=== PATIENT | female | born 1990 | race Caucasian/White ===

== ENCOUNTER 2019-11-25 10:50 | Emergency (ER) | payer OTHER, SELFPAY ==
[2019-11-25 10:58] VITALS: BP 136/88; PULSE 78; RESP 16; TEMP 36.6; O2SAT 100; BMI 32.1
--- NOTE | 2019-11-25 11:31 | ED_ITS ---
Entered by Genie Enrique, acting as scribe for Nicolasa Hanson May Nov 25, 2019 10:50 HPI - Neuro Symptoms/Deficit General: Chief Complaint: Neuro Symptoms/Deficit Stated Complaint: face numbness and tingling Time Seen by Provider: 11/25/19 11:29 Source: patient Mode of arrival: ambulatory Limitations: no limitations History of Present Illness: HPI Narrative: 28 yo Female presents to ED with complaint of numbness to her face. Pt states that it started on this right side of her face and has spread up and around her forehead and down the left side of her face and down into her left arm. Pt states that she had a headache yesterday and last night but it has resolved this morning. Onset (ago): hour(s) Time: 10:30 Location: left face and right face History of same: No Quality: numb Relieving factors: none Exacerbating factors: none Context: gradual onset On Anticoagulants: No Associated symptoms: Reports headache(s) and tingling; Deny chest pain, diaphoresis, fevers/chills, malaise, nausea, vomiting or weakness Review of Systems General: Reports: other (negative unless marked) Const: Denies: fever, chills, body aches, fatigue, malaise or diaphoresis Eyes: Denies: change in vision or blurry vision ENMT: Denies: throat pain, painful swallowing, hoarseness, ear pain, ear discharge, Change in hearing or nasal discharge Card: Denies: chest pain Resp: Denies: shortness of breath, productive cough, non-productive cough, wheezing, coughing up blood or chest congestion GI: Denies: abdominal pain, nausea, vomiting, vomiting blood, coffee grounds in vomit, diarrhea, constipation, cramping, blood in stool or black tarry stool : Denies: flank pain, painful urination, urinary frequency, urinary urgency, decreased urine ouput, urinary incontinence or blood in urine Musc: Denies: neck pain, back pain, extremity pain, extremity swelling, joint pain, joint swelling, joint warmth or joint stiffness Skin/Breast: Denies: rash, skin tenderness or yellow skin Neuro: Reports: headache, numbness in extremities and changes in sensation Endo: Denies: excessive thirst, tired all the time, cold intolerance, excessive sweating, flushing or hot flashes Jef/Lymph: Denies: easy bruising, easy bleeding, petechiae or enlarged lymph nodes All/Imm: Denies: hives, throat swelling, tongue swelling, facial swelling or acute wheezing PFSH ED PFSH: Statuses (acute, chronic, etc) shown below reflect problem list status as previously entered and may not be historically accurate Medical History Depression (Acute) Psoriasis (Acute) Sciatica (Acute) Family History Other Cancer Diabetes Hypertension Multiple sclerosis Stroke Social History Smoking and tobacco status: current every day smoker Female Reproductive History: Date of last menstrual period: 11/17/19 NIH stroke score NIHSS: Level Of Consciousness - 1a: 0 Level Of Consciousness Questions - 1b: Both Correct Level Of Consciousness Commands - 1c: Both Correct Best Gaze - 2: Normal Visual Mirza - 3: No Visual Loss Facial Palsy - 4: Normal Motor Arm Right - 5: No Drift Motor Arm Left - 5: Drift Motor Leg Right - 6: No Drift Motor Leg Left - 6: Drift Limb Ataxia - 7: Absent Sensory - 8: Mild To Moderate Loss Best Language - 9: No Aphasia Dysarthia - 10: Normal Extinction And Inattention - 11: 0 Score: Total Score: 3 Physical Exam Const: COMMON NORMALS: no apparent distress, oriented x3, no limitations, healthy appearing and well nourished EXAM LIMITATIONS: no altered mental status GENERAL APPEARANCE: cooperative, well kempt and well developed ORIENTATION/CONSCIOUSNESS: Yes awake HENMT: COMMON NORMALS: normocephalic, head/scalp atraumatic, hearing grossly normal bilaterally, external ears normal, EAC's normal, external nose normal and moist oral mucous membranes HEAD & SCALP: normal to inspection, normocephalic and atraumatic FACE & SINUS: normal facial exam and face symmetric NOSE: external nose normal and nares normal EXTERNAL EAR: Yes external ears normal EXTERNAL AUDITORY CANAL: EAC's normal MOUTH: oral and palatal mucosa normal and tongue normal Eye: COMMON NORMALS: PERRL, EOMs intact bilaterally, conjunctivae normal and no scleral icterus GENERAL EYE: normal appearance of both eyes and normal light reflex CONJUNCTIVA: Yes conjunctivae normal SCLERA: sclerae normal CORNEA: Yes corneas normal PUPIL: Yes PERRL DIRECT OPHTHALMOSCOPY: Yes normal light reflex Neck/C-Spine: COMMON NORMALS: full ROM, no lymphadenopathy, supple, no meningeal signs and no JVD GENERAL: Yes normal visual inspection and Yes trachea midline CERVICAL SPINE: Yes cervical ROM normal Chest: COMMONS NORMALS: inspection of chest normal and palpation of chest n ormal Resp: COMMON NORMALS: normal respiratory effort, no retractions, no use of accessory muscles and clear to auscultation bilaterally EFFORT & INSPECTION: Yes able to speak in complete sentences AUSCULTATION: clear to auscultation bilaterally Cardio: COMMON NORMALS: no JVD, regular rate, regular rhythm, S1 normal heart sound, S2 normal heart sound, no gallops, no clicks, no murmurs and no rub JUGULAR VENOUS DISTENTION: no JVD RATE: regular rate RHYTHM: regular rhythm HEART SOUNDS: S1 normal and S2 normal GI: COMMON NORMALS: soft to palpation, non-tender, no hepatosplenomegaly and no masses INSPECTION: Yes normal to inspection PALPATION: Yes soft and Yes no hepatosplenomegaly : COMMON NORMALS: Yes no CVA tenderness BLADDER/KIDNEY EXAM: Yes no CVA tenderness Back/Pelvis: COMMON NORMALS: no CVA tenderness, thoracic and lumbar spine normal to inspection, no thoracic nor lumbar tenderness and thoraco-lumbar ROM normal Extremity: COMMON NORMALS: normal to inspection, full ROM, normal capillary refill, no joint enlargement, no clubbing, cyanosis or edema and no calf tenderness Neuro: COMMON NORMALS: oriented x3, CN's II-XII intact bilaterally, moves all extremities, no focal motor deficits and no sensory deficits noted MENINGEAL SIGNS: Yes no meningeal signs Psych: COMMON NORMALS: mental status grossly normal, thought process normal, cooperative, affect normal, speech normal and activity/motor behavior normal APPEARANCE: Yes well kempt SPEECH: Yes normal speech THOUGHT PROCESS: normal thought process Skin: COMMON NORMALS: no rashes or lesions noted, skin turgor normal, no jaundice, no petechiae and no mottling GENERAL SKIN EXAM: no rashes or lesions noted and turgor normal Course Vital Signs: Vital signs: Vital Signs Temperature 97.9 F 11/25/19 10:58 Pulse Rate 80 11/25/19 14:08 Respiratory Rate 16 11/25/19 10:58 Blood Pressure 95/64 11/25/19 14:08 Pulse Oximetry 99 11/25/19 14:08 MDM - Neuro Symptoms/Deficit MDM Narrative: Medical decision making narrative: The patient was seen and evaluated by Dr. Rios, please see her note for her history, physical exam and medical decision making notes. She agreed the patient was not a TPA candidate and this was much more likely a complicated migraine. Treating her with migraine medications has caused the neurologic symptoms to resolve that she now has a headache but that is improving as well. Further history reveals the patient is been having frequent headaches. I reviewed the case with Dr. Kelley and he is agreeable to see the patient in his office for recheck this week. I reviewed this plan with the patient and she is in agreement. She has no other questions or concerns. Differential Diagnosis: Neuro Differential Diagnosis: Likely delirium, subarachnoid hemorrhage, peripheral neuropathy, cerebrovascular accident, multiple sclerosis and transient cerebral ischemia Lab Data: Labs: Lab Results 11/25/19 11/25/19 11/25/19 Range/Units 11:48 11:48 11:48 WBC 7.6 (4.0-10.0) 10^3/ uL RBC 5.49 H (4.1-5.3) 10^6/u L Hgb 15.7 H (11.5-15.3) g/dL Hct 48.9 H (37.0-47.0) % MCV 89.1 (81-99) fL MCH 28.6 (28.0-34.0) pg MCHC 32.1 (30.0-36.0) g/dL RDW 11.8 L (12.1-15.1) % Plt Count 203 (130-400) 10^3/c mm MPV 11.5 H (7.4-10.4) fL Neut % (Auto) 72.8 % Lymph % (Auto) 20.0 % [place] % (Auto) 5.0 % Eos % (Auto) 1.3 % Baso % (Auto) 0.5 % Neut # (Auto) 5.5 (1.8-7.7) 10^3/u L Lymph # (Auto) 1.5 (0.8-4.8) 10^3/u L [place] # (Auto) 0.4 (0.2-0.9) 10^3/u L Eos # (Auto) 0.1 (0.0-0.8) 10^3/u L Baso # (Auto) 0.0 (0.0-0.1) 10^3/u L Nucleated RBC % (a uto) 0 % Nucleated RBCs # 0.0 /100WBC ESR (0-15) mm/hr PT 13.40 H (10.5-13.3) SECO NDS INR 0.99 (0.8-1.2) APTT 36.9 H (23.9-36.7) SECO NDS Sodium 136 (136-145) mmol/L Potassium 4.2 (3.5-5.1) mmol/L Chloride 99 (98-107) mmol/L Carbon Dioxide 26 (22-29) mmol/L Anion Gap 15.2 (5-19) BUN 8 (6-20) mg/dL Creatinine 0.8 (0.5-0.9) mg/dL GFR Calculation 84.8 L (90-130) mL/min Glucose 93 (74-109) mg/dL POC Glucose (70-110) mg/dL Calcium 10.6 H (8.6-10.0) mg/Dl Total Bilirubin 0.9 (0.15-1.2) mg/dL AST 35 H (0-32) U/L ALT 68 H (0-33) U/L Alkaline Phosphata se 144 H (35-105) IU/L C-Reactive Protein (0.0-4.9) mg/L Total Protein 8.8 H (6.6-8.7) g/dL Albumin 5.1 (3.5-5.2) g/dL Globulin 3.7 (1.3-4.6) g/dL Ethyl Alcohol < 10 (0-10) mg/dL 11/25/19 11/25/19 11/25/19 Range/Units 11:48 11:48 12:26 WBC (4.0-10.0) 10^3/ uL RBC (4.1-5.3) 10^6/u L Hgb (11.5-15.3) g/dL Hct (37.0-47.0) % MCV (81-99) fL MCH (28.0-34.0) pg MCHC (30.0-36.0) g/dL RDW (12.1-15.1) % Plt Count (130-400) 10^3/c mm MPV (7.4-10.4) fL Neut % (Auto) % Lymph % (Auto) % [place] % (Auto) % Eos % (Auto) % Baso % (Auto) % Neut # (Auto) (1.8-7.7) 10^3/u L Lymph # (Auto) (0.8-4.8) 10^3/u L [place] # (Auto) (0.2-0.9) 10^3/u L Eos # (Auto) (0.0-0.8) 10^3/u L Baso # (Auto) (0.0-0.1) 10^3/u L Nucleated RBC % (a uto) % Nucleated RBCs # /100WBC ESR 7 (0-15) mm/hr PT (10.5-13.3) SECO NDS INR (0.8-1.2) APTT (23.9-36.7) SECO NDS Sodium (136-145) mmol/L Potassium (3.5-5.1) mmol/L Chloride (98-107) mmol/L Carbon Dioxide (22-29) mmol/L Anion Gap (5-19) BUN (6-20) mg/dL Creatinine (0.5-0.9) mg/dL GFR Calculation (90-130) mL/min Glucose (74-109) mg/dL POC Glucose 93 (70-110) mg/dL Calcium (8.6-10.0) mg/Dl Total Bilirubin (0.15-1.2) mg/dL AST (0-32) U/L ALT (0-33) U/L Alkaline Phosphata se (35-105) IU/L C-Reactive Protein 0.8 (0.0-4.9) mg/L Total Protein (6.6-8.7) g/dL Albumin (3.5-5.2) g/dL Globulin (1.3-4.6) g/dL Ethyl Alcohol (0-10) mg/dL Imaging Data^: CT Head: Radiologist's impression: [address] [address] [address] Scan Report Signed Patient: Yina Soriano #: [id number] : 1990Acct#:[id number] Age/Sex: 28 / FADM Date: 11/25/19 Loc: ERRoom/Bed: Attending Dr: Ordering Provider/Ordering MD: Nicolasa Hanson DO Date of Service: 11/25/19 Procedure(s): CT head wo con* [id number] Accession Number(s): [id number] Report Number: [id number] WS: [id number] CT HEAD NONCONTRAST HISTORY: Symptoms of Acute Stroke TECHNIQUE: Contiguous axial imaging performed through the brain in 2.5 mm imaging. Bone and soft tissue windows. Sagittal and coronal reformats reviewed. All CT scans at [facility] use at least one of these dose optimization techniques: automated exposure control; mA and/or kV adjustment per patient size (includes targeted exams where dose is matched to clinical indication); or iterative reconstruction. DLP: 842.57 mGy.cm COMPARISON: None available. No acute intracranial hemorrhage, midline shift or mass effect. No atrophy or prior infarcts or herniation. No sulcal effacement. Ventricles: Normal size with no hydrocephalus. Paranasal sinuses: As visualized are clear. Mastoid air cells: Well pneumatized. Calvarium and scalp: Skull is intact with no soft tissue edema or swelling. Notified Nicolasa Hanson at 11/25/2019 11:[address]/CT head wo con* [id number] IMPRESSION: Negative head CT. Dictated By:Susana Foster DO Signed By:Susana Foster DOSigned Date/Time:11/25/19 1200 DD/ 1155 CXR: Radiologist's impression: [facility] [address] [place] [address] XRay Report Signed Patient: Yina Soriano #: [id number] : 1990Acct#:[id number] Age/Sex: 28 / FADM Date: 11/25/19 Loc: ERRoom/Bed: Attending Dr: Ordering Provider/Ordering MD: Nicolasa Hanson DO Date of Service: 11/25/19 Procedure(s): XR chest 1V portable 10059 Accession Number(s): [id number] Report Number: [id number] PROCEDURE INFORMATION: Exam: XR Chest, 1 View Exam date and time: 11/25/2019 12:37 PM Age: 28 years old Clinical indication: Other: Altered mental status; Additional info: AMS TECHNIQUE: Imaging protocol: XR of the chest Views: 1 view. COMPARISON: No relevant prior studies available. FINDINGS: Lungs: Unremarkable. No consolidation. Pleural space: Unremarkable. No pleural effusion. No pneumothorax. Heart/Mediastinum: Unremarkable. No cardiomegaly. Bones/joints: Unremarkable. XR/XR chest 1V portable [id number] IMPRESSION: No acute findings. Dictated By:Kal Johnston Signed By:Rambo Johnston Date/Time:11/25/191315 DD/ 14 CTA Head/Neck: Radiologist's impression: [place] [address] CT Scan Report Signed Patient: Yina Soriano #: [id number] : 1990Acct#:[id number] Age/Sex: 28 FADM Date: 11/25/19 Loc: ERRoom/Bed: Attending Dr: Ordering Provider/Ordering MD: Nicolasa Hanson DO Date of Service: 11/25/19 Procedure(s): CT angio headneck* [id number] Accession Number(s): [id number] Report Number: [id number] WS: [id number] CT ANGIOGRAM CEREBRAL AND CAROTID ARTERIES HISTORY: CVA SYMPTOMS TECHNIQUE: CT angiogram is performed of the carotid and cerebral arteries. During arterial injection imaging is obtained from the skull vertex to the aortic arch in 1.25 mm imaging. Coronal and sagittal reformats are submitted. Additional multi planar reformats of the carotid and cerebral arteries are submitted, MIP imaging also reviewed. NASCET criteria utilized. All CT scans at [facility] use at least one of these dose optimization techniques: automated exposure control; mA and/or kV adjustment per patient size (includes targeted exams where dose is matched to clinical indication); or iterative reconstruction. CONTRAST: Omnipaque 350; 95 mL IV. DLP: 1464.94 mGy.cm COMPARISON: No similar studies. Carotid Angiogram: Right carotid: Common carotid artery: Arises normally from the innominate artery. No significant plaque or stenosis. Internal carotid artery: No plaque or stenosis.0 External carotid artery: Patent. Left carotid: Common carotid artery: Arises normally from the aorta. No significant plaque or stenosis. Internal carotid artery: No plaque or stenosis. External carotid artery: Patent. Right vertebral artery: Unremarkable. Left vertebral artery: Unremarkable. Arises normally from the subclavian artery. Subclavian arteries: No stenosis or significant abnormality. Upper thorax: Normal. Thyroid gland: Normal. Osseous structures: Unremarkable. CEREBRAL ANGIOGRAM: Intracranial vertebral arteries: Normal with no significant atherosclerosis. Basilar artery: No significant stenosis or occlusion. No aneurysm. Intracranial Internal carotid arteries: Demonstrates no significant stenosis or plaque. Middle cerebral arteries: Normal. Anterior cerebral arteries and ACOM: Normal. Posterior cerebral arteries and PCOM's: Normal. Dural venous sinuses are normally enhancing. Mastoid air cells: Normal. Paranasal sinuses: Mild mucoperiosteal thickening in the maxillary sinuses. Calvarium: Normal. CT/CT angio headneck* [id number] IMPRESSION: 1. Normal carotid arteries. 2. Unremarkable [place]. Dictated By:Susana Foster DO Signed By:Susana Foster DOSigned Date/Time:11/25/191227 DD/ 1224 Discharge Plan Discharge Patient Disposition: Home, Self-Care Clinical Impression: Complicated migraine Condition: Stable Prescriptions: New Reglan 10 mg tablet 10 mg PO Q6H 7 Days Qty: 28 RF: 0 Adult Low Dose Aspirin 81 mg tablet,delayed release (DR/EC) 81 mg PO DAILY Qty: 20 RF: 0 No Action No Known Home Medications RF: 0 Discharge Orders: Discharge Order (Routine); Ordered 11/25/19 Ordered By: Nicolasa Hanson Referrals: Jake Kelley MD [Family Provider] - 1-3 days Discharge Diet: Usual diet Discharge Activity: Increase activity as tolerated Patient Instructions: Headache - Migraine (Adult) Activity Restrictions/Additional Instructions: Please return to the ER immediately for any of the signs or symptoms listed on your discharge instruction sheets, worsening/changing of your symptoms, you are not getting better as quickly as expected, or for ANY other cause or concerns. Be certain to call Dr. Kelley's office today as he is agreed to see you in the office this week for recheck. Coding Level of Care Code ED Distillery Worker for Chg Fwd Exam Problem Focused The documentation recorded by the Iva cyr Carmen, accurately reflects the service I personally performed and the decisions made by me, Nicolasa Hanson Nov 25, 2019 10:50
--- NOTE | 2019-11-25 11:40 | CT_ITS ---
WS: [id number] CT HEAD NONCONTRAST HISTORY: Symptoms of Acute Stroke TECHNIQUE: Contiguous axial imaging performed through the brain in 2.5 mm imaging. Bone and soft tiss ue windows. Sagittal and coronal reformats reviewed. All CT scans at [facility] use at ast one of these dose optimization techniques: automated exposure control; mA and/or kV adjustment pe r patient size (includes targeted exams where dose is matched to clinical indication); or iterative r econstruction. DLP: 842.57 mGy.cm COMPARISON: None available. No acute intracranial hemorrhage, midline shift or mass effect. No atrophy or prior infarcts or herniation. No sulcal effacement. Ventricles: Normal size with no hydrocephalus. Paranasal sinuses: As visualized are clear. Mastoid air cells: Well pneumatized. Calvarium and scalp: Skull is intact with no soft tissue edema or swelling. Notified Nicolasa Hanson at 11/25/2019 11:[address]/CT head wo con* [id number] IMPRESSION: Negative head CT.
--- NOTE | 2019-11-25 11:40 | ECG_ITS ---
Measurements Intervals [place] Rate: 72 P: 49 SD: 199 QRS: 42 QRSD: 96 T: 52 QT: 383 QTc: 422 SINUS RHYTHM LOW QRS VOLTAGE IN PRECORDIAL LEADS [QRS DEFLECTION < 1.0 mV IN CHEST LEADS] No previous ECG available for comparison Electronically Signed On 11-25-2019 20:12:29 CUT OFF SAW GRADER by Willam Bethea M.D. [email or web address]
--- NOTE | 2019-11-25 11:40 | XRR_ITS ---
PROCEDURE INFORMATION: Exam: XR Chest, 1 View Exam date and time: 11/25/2019 12:37 PM Age: 28 years old Clinical indication: Other: Altered mental status; Additional info: AMS TECHNIQUE: Imaging protocol: XR of the chest Views: 1 view. COMPARISON: No relevant prior studies available. FINDINGS: Lungs: Unremarkable. No consolidation. Pleural space: Unremarkable. No pleural effusion. No pneumothorax. Heart/Mediastinum: Unremarkable. No cardiomegaly. Bones/joints: Unremarkable. XR/XR chest 1V portable [id number] IMPRESSION: No acute findings.
--- NOTE | 2019-11-25 11:45 | PC.NURSE ---
pt to CT by stretcher with tech
--- NOTE | 2019-11-25 11:46 | CT_ITS ---
WS: [id number] CT ANGIOGRAM CEREBRAL AND CAROTID ARTERIES HISTORY: CVA SYMPTOMS TECHNIQUE: CT angiogram is performed of the carotid and cerebral arteries. During arterial injection imaging is obtained from the skull vertex to the aortic arch in 1.25 mm imaging. Coronal and sagittal reformats are submitted. Additional multi planar reformats of the carotid and cerebral arteries are submitted, MIP imaging also reviewed. NASCET criteria utilized. All CT scans at [facility] use at least one of these dose optimization techniques: automated exposure control; mA and/or kV ad justment per patient size (includes targeted exams where dose is matched to clinical indication); or iterative reconstruction. CONTRAST: Omnipaque 350; 95 mL IV. DLP: 1464.94 mGy.cm COMPARISON: No similar studies. Carotid Angiogram: Right carotid: Common carotid artery: Arises normally from the innominate artery. No significant plaque or stenosis. Internal carotid artery: No plaque or stenosis.0 External carotid artery: Patent. Left carotid: Common carotid artery: Arises normally from the aorta. No significant plaque or stenosis. Internal carotid artery: No plaque or stenosis. External carotid artery: Patent. Right vertebral artery: Unremarkable. Left vertebral artery: Unremarkable. Arises normally from the subclavian artery. Subclavian arteries: No stenosis or significant abnormality. Upper thorax: Normal. Thyroid gland: Normal. Osseous structures: Unremarkable. CEREBRAL ANGIOGRAM: Intracranial vertebral arteries: Normal with no significant atherosclerosis. Basilar artery: No significant stenosis or occlusion. No aneurysm. Intracranial Internal carotid arteries: Demonstrates no significant stenosis or plaque. Middle cerebral arteries: Normal. Anterior cerebral arteries and ACOM: Normal. Posterior cerebral arteries and PCOM's: Normal. Dural venous sinuses are normally enhancing. Mastoid air cells: Normal. Paranasal sinuses: Mild mucoperiosteal thickening in the maxillary sinuses. Calvarium: Normal. CT/CT angio headneck* [id number] IMPRESSION: 1. Normal carotid arteries. 2. Unremarkable [place].
--- NOTE | 2019-11-25 11:47 | PC.NURSE ---
Ed doc in room. stroke alert called [id number]
[2019-11-25 11:54] LABS: Basophils % 0.5 %; Eosinophils # 0.1 10^3/uL (0.0-0.8); Eosinophils % 1.3 %; Hematocrit 48.9 % (37.0-47.0); Hemoglobin 15.7 g/dL (11.5-15.3); Lymphocytes # 1.5 10^3/uL (0.8-4.8); Mean Corpuscular HGB Conc 32.1 g/dL (30.0-36.0); Mean Corpuscular Hemoglobin 28.6 pg (28.0-34.0); Mean Corpuscular Volume 89.1 fL (81-99); Mean Platelet Volume 11.5 fL (7.4-10.4); Monocytes # 0.4 10^3/uL (0.2-0.9); Neutrophils # 5.5 10^3/uL (1.8-7.7); Neutrophils % 72.8 %; Nucleated Red Blood Cells % 0 %; Platelet Count 203 10^3/cmm (130-400); Red Blood Count 5.49 10^6/uL (4.1-5.3); Red Cell Distribution Width 11.8 % (12.1-15.1); White Blood Count 7.6 10^3/uL (4.0-10.0)
[2019-11-25] MEDS: iohexol 350 mg/mL 100 mL Btl IV (11:56)
--- NOTE | 2019-11-25 12:06 | PC.NURSE ---
DR PEDRAZA AT BEDSIDE
[2019-11-25 12:08] LABS: INR 0.99 (0.8-1.2)
[2019-11-25 12:09] LABS: Partial Thromboplastin Time 36.9 SECONDS (23.9-36.7)
[2019-11-25 12:13] LABS: Alanine Aminotransferase 68 U/L (0-33); Albumin Level 5.1 g/dL (3.5-5.2); Alkaline Phosphatase 144 IU/L (35-105); Anion Gap 15.2 (5-19); Aspartate Amino Transferase 35 U/L (0-32); Blood Urea Nitrogen 8 mg/dL (6-20); Calcium 10.6 mg/Dl (8.6-10.0); Carbon Dioxide 26 mmol/L (22-29); Chloride 99 mmol/L (98-107); Globulin 3.7 g/dL (1.3-4.6); Glomerular Filtration Rate 84.8 mL/min (90-130); Glucose 93 mg/dL (74-109); Potassium 4.2 mmol/L (3.5-5.1); Sodium 136 mmol/L (136-145); Total Bilirubin 0.9 mg/dL (0.15-1.2); Total Protein 8.8 g/dL (6.6-8.7)
[2019-11-25 12:14] LABS: C Reactive Protein 0.8 mg/L (0.0-4.9)
[2019-11-25 12:15] LABS: Alcohol Level < 10 mg/dL (0-10)
[2019-11-25 12:19] VITALS: PULSE 72; O2SAT 98
--- NOTE | 2019-11-25 12:20 | PC.NURSE ---
accounts payable coordinator RN at bedside
[2019-11-25 12:29] LABS: Glucose Point of Care 93 mg/dL (70-110)
[2019-11-25 12:37] LABS: Erythrocyte Sedimentation Rate 7 mm/hr (0-15)
[2019-11-25] MEDS: aspirin 325 mg Tablet PO (12:37)
[2019-11-25] MEDS: valproic acid inj 500 MG in sodium chloride 0.9% 50 ML 55 MG IV (12:37)
[2019-11-25] MEDS: metoclopramide 5 mg/mL SDV 2 mL 10 MG IVP (14:04)
[2019-11-25] MEDS: ketorolac 30 mg/mL INJ 15 MG IVP (14:04)
[2019-11-25 14:08] VITALS: BP 95/64; PULSE 80; O2SAT 99
[2019-11-25 14:16] LABS: Add Urine Microscopic? NO
[2019-11-25 14:37] VITALS: BP 122/63; PULSE 20; RESP 18; O2SAT 100
[2019-11-25 14:46] LABS: Bilirubin Urine Neg (NEGATIVE); Blood Urine Neg (Negative); Glucose Urine UA Norm (Normal); Ketones Urine Negative (Negative); Leukocyte Esterase Urine Negative (Negative); Nitrate Urine Negative (Negative); Protein Urine Neg (Negative); Urine Appearance Clear (CLEAR); Urine Color Yellow (Yellow); Urobilinogen Urine Norm (Negative); pH Urine 6.5 (5-7)
[2019-11-25 15:40] LABS: Amphetamines Screen Urine Negative (Negative); Barbiturates Screen Urine Negative (Negative); Benzodiazepines Screen Urine Negative (Negative); Cocaine Screen Urine Negative (Negative); Opiate Screen Urine Negative (Negative); PCP Screen Urine Negative (Negative); THC Screen Urine Positive (Negative)
--- NOTE | 2019-11-26 08:37 | PM.SAN ---
Stroke Alert Activation ED Arrival Date: 11/25/19 ED Arrival Time: 10:50 Last Known Normal/at Baseline: 1-2 hours ago Other Last Known Well Infomation: This patient arrived in triage at 1058 complaining of facial numbness and tingling. Although stroke alert was contemplated, stroke team was not activated until 1141 and at that point she went to CAT scan at 1144. I arrived while she was in CAT scan and read her CT of the head on the monitor and found it to be normal. I followed her to the emergency department and performed an NIH stroke scale. It was my opinion that her score was 2 or less and that TPA was not indicated. I suspected that she had migraine equivalent and I took time to talk with her and her and family. I talked with Dr. Patel and recommended that she receive Depacon for migraine equivalent Stroke Alert Activated by: Dr. Patel Stroke Alert Activation Date: 11/25/19 Stroke Alert Activation Time: 11:41 Stroke MD @ Bedside Date: 11/25/19 Stroke MD @ Bedside Time: 11:45 NIH Stroke Scale Time: 11:50 NIH Stroke Scale Score: NIH Stroke Scale Score: 1 NIH stroke score NIHSS: Level Of Consciousness - 1a: 0 Level Of Consciousness Questions - 1b: Both Correct Level Of Consciousness Commands - 1c: Both Correct Best Gaze - 2: Normal Visual Mirza - 3: No Visual Loss Facial Palsy - 4: Normal Motor Arm Right - 5: No Drift Motor Arm Left - 5: No Drift Motor Leg Right - 6: No Drift Motor Leg Left - 6: No Drift Limb Ataxia - 7: Absent Sensory - 8: Mild To Moderate Loss Best Language - 9: No Aphasia Dysarthia - 10: Normal Extinction And Inattention - 11: 0 Score: Total Score: 1 Stroke Alert Data/Treatment Time to CT of Head: 11:44 CT Results Date: 11/25/19 CT Results Time: 11:47 CT Impression: Normal Stroke Risk Factors: depression (Her only risk factor is early vascular in her father) tPA Contraindication: tPA Contraindication: Treatment not indcated tPA Admin Prior to Arrival: No Patient & Family Educated on: Cause of Stroke, Treament Plan and Prognosis Other Patient & Family Education: I talked with the patient and her family about diagnosis of migraine and migraine with aura. Critical Care Time Critical Care Time: less than 30 mins A&P Assessment and plan (1) Migraine with aura and with status migrainosus: I was called stat for stroke team after Dr. Patel identified unilateral numbness in this 28-year-old woman who has no previous history of migraine with aura. On further discussion she acknowledges that she had this kind of symptom one other time in her life. Her neurologic exam was unremarkable with a total NIH stroke scale score of 1?2 (she improved while in CAT scan) and TPA is not indicated in patients with low NIH stroke scale score. I think the chance that she is having an ischemic event is very low and that this represents migraine with aura. I talked with the patient and her family at length this they were very anxious and concerned that she was having an acute stroke. Her father had stroke and heart attack at a young age of 40 and that is her only risk factor. I recommended that from now on she stop smoking and she should start taking an 81 mg aspirin per day. I recommended Depacon IV to abort her current episode and I talked with Dr. Patel at length. I spent 30 minutes in critical care time. Status: Acute Code(s): G43.101 - Migraine with aura, not intractable, with status migrainosus Coding Level of Care Code Acute Para Machine Operator [facility] Diagn[facility] Migraine with aura and with status migrainosus G43.101
== END 2019-11-25 14:39 | disposition home or self-care (01) ==
PROVIDERS: Emergency Provider Emergency Medicine; Family Provider Family Medicine
DX: R20.0 Anesthesia of skin (principal); G43.109 Migraine with aura, not intractable, without status migrainosus; F17.210 Nicotine dependence, cigarettes, uncomplicated
CPT/HCPCS: 12345; 36416; 70450; 70496; 70498; 71045; 80053; 80307; 81003; 82962; 85025; 85610; 85651; 85730; 86140; 93005; 96365; 96374; 99283; A9270; J0131; J1885; J2765; Q9967

== ENCOUNTER 2021-07-18 02:10 | Emergency (ER) | payer BC, SELFPAY ==
[2021-07-18 02:16] VITALS: BP 110/74; PULSE 77; RESP 18; TEMP 36.4; O2SAT 98; BMI 29.5
[2021-07-18 02:42] LABS: Add Urine Culture? No; Add Urine Microscopic? YES; Bacteria Urine 3+ /hpf; Bilirubin Urine Neg (Negative); Blood Urine 2+ (Negative); Glucose Urine UA Norm (Normal); Ketones Urine Negative (Negative); Leukocyte Esterase Urine Trace (Negative); Nitrate Urine Negative (Negative); Protein Urine Neg (Negative); Squamous Epithelial Cell Urine 25-40 /hpf (0-5); Urine Appearance Turbid (CLEAR); Urine Color Yellow (Yellow); Urobilinogen Urine Norm (Negative); pH Urine 6 (5-7)
[2021-07-18 02:46] LABS: HCG Qualitative Urine. Negative (Negative)
--- NOTE | 2021-07-18 02:55 | W.ED.ABDPA2 ---
HPI - Abdominal Pain General: Chief Complaint: Abdominal Pain Stated Complaint: abd pain/vomiting Time Seen by Provider: 07/18/21 02:27 Source: patient Mode of arrival: ambulatory Limitations: no limitations History of Present Illness: HPI narrative: 30-year-old female who states she been having abdominal pain for the last 2 days. States it got much worse last night and this morning. States pain is sharp in the epigastric region. States she had one episode of vomiting. States her pain is currently an 8 out of 10. She denies any worsening or improving factors. MD elicited complaint: abdominal pain Associated Symptoms: Reports nausea and vomiting; Denies chills, dysuria and fever(s) Related Data: Date of Last Menstrual Period: 11/17/19 Review of Systems Const: Denies: fever(s), chills, body aches or change in appetite Eyes: Denies: blurry vision or eye discomfort ENMT: Denies: throat pain or dental pain Card: Denies: chest pain Resp: Denies: dyspnea GI: Reports: abdominal pain, nausea and vomiting : Denies: dysuria Musc: Denies: neck pain or back pain Skin/Breast: Denies: rash Neuro: Denies: headache(s) Psych: Denies: depression Jef/Lymph: Denies: easy bruising All/Imm: Denies: urticaria PFSH ED PFSH: Medical History (Updated 07/18/21 @ 04:03 by Rosa Hale MD) Depression Psoriasis Sciatica Family History Other Cancer Diabetes Hypertension Multiple sclerosis Stroke Social History Smoking and tobacco status: current every day smoker Female Reproductive History: Date of last menstrual period: 11/17/19 Physical Exam Const: COMMON NORMALS: no acute distress, patient oriented x3 and healthy appearing HENMT: COMMON NORMALS: normocephalic and atraumatic HEAD & SCALP: normocephalic and atraumatic Eye: COMMON NORMALS: Equal, round and reactive pupils present and EOMs intact bilaterally PUPIL: Yes Equal, round and reactive pupils present Neck/C-Spine: COMMON NORMALS: full ROM and supple Chest: COMMONS NORMALS: normal inspection of the chest and normal palpation of entire chest wall Resp: COMMON NORMALS: normal respiratory effort, No retractions, No use of accessory muscles and clear to auscultation bilaterally AUSCULTATION: clear to auscultation bilaterally Cardio: COMMON NORMALS: regular rate, regular rhythm and No murmurs present (Cardio) RATE: regular rate RHYTHM: regular rhythm GI: COMMON NORMALS: Normal to inspection, nondistended, normoactive bowel sounds present, Soft to palpation and no masses PALPATION: Yes Soft to palpation OTHER: epigastric tenderness Extremity: COMMON NORMALS: normal to inspection and full ROM Neuro: COMMON NORMALS: patient oriented x3, moves all extremities and no focal motor deficits Psych: COMMON NORMALS: mental status grossly normal, Normal thought process present and cooperative THOUGHT PROCESS: Normal thought process present Skin: COMMON NORMALS: no rashes or lesions noted and no wounds GENERAL SKIN EXAM: no rashes or lesions noted Course Vital Signs: Vital signs: Vital Signs Temperature 97.6 F 07/18/21 02:16 Pulse Rate 77 07/18/21 02:16 Respiratory Rate 16 07/18/21 03:00 Blood Pressure 110/74 07/18/21 02:16 Pulse Oximetry 98 07/18/21 03:00 MDM - Abdominal Pain MDM Narrative: Medical decision making narrative: Patient presents here with abdominal pain. CT does show gallstones could be causing her pain. She has no signs of cholecystitis. Urine does show possible UTI. We will start her on antibiotics along with pain medicine. We will get her surgery follow-up for gallstones. She is currently pain-free and abdominal exam at discharge is benign. She is to return if worsening. Lab Data: Labs: Lab Results 07/18/21 07/18/21 07/18/21 Range/Units 02:23 02:23 03:00 WBC 7.4 (4.0-10.0) 10^3/ uL RBC 4.91 (4.1-5.3) 10^6/u L Hgb 14.4 (11.5-15.3) g/dL Hct 44.1 (37.0-47.0) % MCV 89.8 (81-99) fl MCH 29.3 (28.0-34.0) pg MCHC 32.7 (30.0-36.0) g/dL RDW 11.7 L (12.1-15.1) % Plt Count 150 (130-400) 10^3/c mm MPV 11.7 H (7.4-10.4) fL Neut % (Auto) 76.1 % Lymph % (Auto) 14.8 % [place] % (Auto) 6.1 % Eos % (Auto) 1.9 % Baso % (Auto) 0.4 % Neut # (Auto) 5.62 (1.8-7.7) 10^3/u L Lymph # (Auto) 1.1 (0.8-4.8) 10^3/u L [place] # (Auto) 0.5 (0.2-0.9) 10^3/u L Eos # (Auto) 0.1 (0.0-0.8) 10^3/u L Baso # (Auto) 0.0 (0.0-0.1) 10^3/u L Nucleated RBC % (a uto) 0 % Nucleated RBCs # 0.0 /100WBC Sodium (136-145) mmol/L Potassium (3.5-5.1) mmol/L Chloride (98-107) mmol/L Carbon Dioxide (22-29) mmol/L Anion Gap (5-19) BUN (6-20) mg/dL Creatinine (0.5-0.9) mg/dL GFR Calculation (90-130) mL/min Glucose (65-115) mg/dL Calculated Osmolal ity (285-295) mOsm/k g Calcium (8.5-10.5) mg/dL Total Bilirubin (0.15-1.2) mg/dL AST (0-32) U/L ALT (0-33) U/L Alkaline Phosphata se (35-105) IU/L Total Protein (6.6-8.7) g/dL Albumin (3.5-5.2) g/dL Globulin (1.3-4.6) g/dL Lipase (13-60) U/L HCG, Qual Negative (Negative) Urine Color Yellow (Yellow) Urine Appearance Turbid (CLEAR) Urine pH 6 (5-7) Ur Specific Gravit y 1.020 (1.005-1.030) Urine Protein Neg (Negative) Urine Glucose (UA) Norm (Normal) Urine Ketones Negative (Negative) Urine Blood 2+ H (Negative) Urine Nitrate Negative (Negative) Urine Bilirubin Neg (Negative) Urine Urobilinogen Norm (Negative) mg/dL Ur Leukocyte Prerna ase Trace H (Negative) Urine RBC 10-15 H (0-2) /hpf Urine WBC 5-10 H (0-5) /hpf Ur Squamous Epith Cells 25-40 H (0-5) /hpf Amorphous Sediment Not Reportable Urine Bacteria 3+ H (NONE) /hpf 07/18/21 Range/Units 03:00 WBC (4.0-10.0) 10^3/ uL RBC (4.1-5.3) 10^6/u L Hgb (11.5-15.3) g/dL Hct (37.0-47.0) % MCV (81-99) fl MCH (28.0-34.0) pg MCHC (30.0-36.0) g/dL RDW (12.1-15.1) % Plt Count (130-400) 10^3/c mm MPV (7.4-10.4) fL Neut % (Auto) % Lymph % (Auto) % [place] % (Auto) % Eos % (Auto) % Baso % (Auto) % Neut # (Auto) (1.8-7.7) 10^3/u L Lymph # (Auto) (0.8-4.8) 10^3/u L [place] # (Auto) (0.2-0.9) 10^3/u L Eos # (Auto) (0.0-0.8) 10^3/u L Baso # (Auto) (0.0-0.1) 10^3/u L Nucleated RBC % (a uto) % Nucleated RBCs # /100WBC Sodium 137 (136-145) mmol/L Potassium 4.0 (3.5-5.1) mmol/L Chloride 100 (98-107) mmol/L Carbon Dioxide 27 (22-29) mmol/L Anion Gap 14.0 (5-19) BUN 7 (6-20) mg/dL Creatinine 0.6 (0.5-0.9) mg/dL GFR Calculation 116.6 (90-130) mL/min Glucose 101 (65-115) mg/dL Calculated Osmolal ity 282 L (285-295) mOsm/k g Calcium 9.3 (8.5-10.5) mg/dL Total Bilirubin 0.5 (0.15-1.2) mg/dL AST 109 H (0-32) U/L ALT 113 H (0-33) U/L Alkaline Phosphata se 113 H (35-105) IU/L Total Protein 6.9 (6.6-8.7) g/dL Albumin 4.2 (3.5-5.2) g/dL Globulin 2.7 (1.3-4.6) g/dL Lipase 28 (13-60) U/L HCG, Qual (Negative) Urine Color (Yellow) Urine Appearance (CLEAR) Urine pH (5-7) Ur Specific Gravit y (1.005-1.030) Urine Protein (Negative) Urine Glucose (UA) (Normal) Urine Ketones (Negative) Urine Blood (Negative) Urine Nitrate (Negative) Urine Bilirubin (Negative) Urine Urobilinogen (Negative) mg/dL Ur Leukocyte Prerna ase (Negative) Urine RBC (0-2) /hpf Urine WBC (0-5) /hpf Ur Squamous Epith Cells (0-5) /hpf Amorphous Sediment Urine Bacteria (NONE) /hpf Imaging Data ^: CT Abd/Pel: Attestation: I personally reviewed and interpreted this imaging study as follows: Radiologist's impression: [address] [address] [address] Scan Report Signed Patient: Yina Soriano Unit #: [id number] : 1990 Age/Sex: 30 / F ADM Date: 07/18/21 Loc: ER Room/Bed: Attending Dr: Ordering Provider/Ordering MD: Rosa Hale MD Date of Service: 07/18/21 Procedure(s): CT abdomen pelvis w con* [id number] Accession Number(s): [id number] Report Number: [id number] PROCEDURE INFORMATION: Exam: CT Abdomen And Pelvis With Contrast Exam date and time: 07/18/2021 3:12 AM Age: 30 years old Clinical indication: Abdominal pain; Localized; Right upper quadrant (ruq); Additional info: Abd pain TECHNIQUE: Imaging protocol: Computed tomography of the abdomen and pelvis with contrast. Radiation optimization: All CT scans at this facility use at least one of these dose optimization techniques: automated exposure control; mA and/or kV adjustment per patient size (includes targeted exams where dose is matched to clinical indication); or iterative reconstruction. Contrast material: OMNI 300; Contrast volume: 95 ml; Contrast route: INTRAVENOUS (IV); COMPARISON: US OB >14 Weeks [id number] 01/02/2018 1:51 PM RADIATION DOSE METRICS: Total DLP (mGy-cm): 1869.96 FINDINGS: Liver: Normal. No mass. Gallbladder and bile ducts: There are punctate hyperdensity seen in the dependent portion of the gallbladder. There are no inflammatory changes seen to suggest cholecystitis. Pancreas: Normal. No ductal dilation. Spleen: Normal. No splenomegaly. Adrenal glands: Normal. No mass. Kidneys and ureters: Normal. No hydronephrosis. Stomach and bowel: Moderate stool is present within the colon. Appendix: The appendix is visualized and is normal in configuration. Intraperitoneal space: Unremarkable. No free air. No significant fluid collection. Vasculature: Unremarkable. No abdominal aortic aneurysm. Lymph nodes: Unremarkable. No enlarged lymph nodes. Urinary bladder: Unremarkable as visualized. Reproductive: There is a 2.2 x 1.6 x 2.7 cm hypoattenuation cystic mass seen within the left ovary compatible with a benign or functional ovarian cyst. Bones/joints: Unremarkable. No acute fracture. Soft tissues: Unremarkable. CT/CT abdomen pelvis w con* [id number] IMPRESSION: 1. Tiny gallstones without evidence of cholecystitis. 2. Probable benign or functional left ovarian cyst measuring up to 2.7 cm. No further workup needed. 3. Normal appendix 4. No evidence for ureteral obstruction Radiation Dose CTDIVOL = (mGy): DLP = 1869.96 (mGy-cm) Dictated By: Renny Ashley MD Signed By: Renny Ashley MD Signed Date/Time: 07/18/21354 DD/ 3 Discharge Plan Discharge Patient Disposition: Home Clinical Impression: Acute cystitis Gallstone Qualifiers: Cholecystitis presence: without cholecystitis Biliary obstruction: without biliary obstruction Qualified Code(s): K80.20 - Calculus of gallbladder without cholecystitis without obstruction Condition: Stable Prescriptions: New hydrocodone-acetaminophen 5-325 mg tablet 1 tab PO Q6H PRN (Reason: pain) Qty: 14 RF: 0 cephalexin 500 mg capsule 500 mg PO TID 7 Days Qty: 21 RF: 0 ondansetron 4 mg tablet,disintegrating 4 mg PO Q6H PRN (Reason: nausea and vomiting) Qty: 14 RF: 0 No Action Adult Low Dose Aspirin 81 mg tablet,delayed release (DR/EC) 81 mg PO DAILY Qty: 20 RF: 0 Discharge Orders: Discharge ED (Routine); Ordered 07/18/21 Ordered By: Rosa Hale Referrals: Justin Louise MD [Physician] - 1-3 days Jake Kelley MD [Primary Care Provider] - Discharge Diet: Advance as tolerated Discharge Activity: Resume usual activity Patient Instructions: Biliary Colic (ED), Urinary Tract Infection in Women (ED), Opioid Safety Coding Level of Care Code ED Aix Administrator for Chg Fwd Exam Comprehensive
[2021-07-18] MEDS: sodium chloride 0.9% 1,000 ML 999 ML IV (02:56)
[2021-07-18 03:00] VITALS: RESP 16; O2SAT 98
[2021-07-18] MEDS: morphine 4 mg/mL SDV 1 mL IVP (03:00)
[2021-07-18] MEDS: ondansetron 2 mg/ML SDV 2 mL 4 MG IVP (03:00)
[2021-07-18 03:02] LABS: Basophils % 0.4 %; Eosinophils # 0.1 10^3/uL (0.0-0.8); Eosinophils % 1.9 %; Hematocrit 44.1 % (37.0-47.0); Hemoglobin 14.4 g/dL (11.5-15.3); Lymphocytes # 1.1 10^3/uL (0.8-4.8); Lymphocytes % 14.8 %; Mean Corpuscular HGB Conc 32.7 g/dL (30.0-36.0); Mean Corpuscular Hemoglobin 29.3 pg (28.0-34.0); Mean Corpuscular Volume 89.8 fl (81-99); Mean Platelet Volume 11.7 fL (7.4-10.4); Monocytes # 0.5 10^3/uL (0.2-0.9); Monocytes % 6.1 %; Neutrophils # 5.62 10^3/uL (1.8-7.7); Neutrophils % 76.1 %; Nucleated Red Blood Cells % 0 %; Platelet Count 150 10^3/cmm (130-400); Red Blood Count 4.91 10^6/uL (4.1-5.3); Red Cell Distribution Width 11.7 % (12.1-15.1); White Blood Count 7.4 10^3/uL (4.0-10.0)
--- NOTE | 2021-07-18 03:12 | CTR_ITS ---
PROCEDURE INFORMATION: Exam: CT Abdomen And Pelvis With Contrast Exam date and time: 07/18/2021 3:12 AM Age: 30 years old Clinical indication: Abdominal pain; Localized; Right upper quadrant (ruq); Additional info: Abd pain TECHNIQUE: Imaging protocol: Computed tomography of the abdomen and pelvis with contrast. Radiation optimization: All CT scans at this facility use at least one of these dose optimization techniques: automated exposure control; mA and/or kV adjustment per patient size (includes targeted exams where dose is matched to clinical indication); or iterative reconstruction. Contrast material: OMNI 300; Contrast volume: 95 ml; Contrast route: INTRAVENOUS (IV); COMPARISON: US OB >14 Weeks [id number] 01/02/2018 1:51 PM RADIATION DOSE METRICS: Total DLP (mGy-cm): 1869.96 FINDINGS: Liver: Normal. No mass. Gallbladder and bile ducts: There are punctate hyperdensity seen in the dependent portion of the gallbladder. There are no inflammatory changes seen to suggest cholecystitis. Pancreas: Normal. No ductal dilation. Spleen: Normal. No splenomegaly. Adrenal glands: Normal. No mass. Kidneys and ureters: Normal. No hydronephrosis. Stomach and bowel: Moderate stool is present within the colon. Appendix: The appendix is visualized and is normal in configuration. Intraperitoneal space: Unremarkable. No free air. No significant fluid collection. Vasculature: Unremarkable. No abdominal aortic aneurysm. Lymph nodes: Unremarkable. No enlarged lymph nodes. Urinary bladder: Unremarkable as visualized. Reproductive: There is a 2.2 x 1.6 x 2.7 cm hypoattenuation cystic mass seen within the left ovary compatible with a benign or functional ovarian cyst. Bones/joints: Unremarkable. No acute fracture. Soft tissues: Unremarkable. CT/CT abdomen pelvis w con* [id number] IMPRESSION: 1. Tiny gallstones without evidence of cholecystitis. 2. Probable benign or functional left ovarian cyst measuring up to 2.7 cm. No further workup needed. 3. Normal appendix 4. No evidence for ureteral obstruction Radiation Dose CTDIVOL = (mGy): DLP = 1869.96 (mGy-cm)
[2021-07-18 03:19] LABS: Alanine Aminotransferase 113 U/L (0-33); Albumin Level 4.2 g/dL (3.5-5.2); Alkaline Phosphatase 113 IU/L (35-105); Aspartate Amino Transferase 109 U/L (0-32); Blood Urea Nitrogen 7 mg/dL (6-20); Calcium 9.3 mg/dL (8.5-10.5); Carbon Dioxide 27 mmol/L (22-29); Chloride 100 mmol/L (98-107); Globulin 2.7 g/dL (1.3-4.6); Glomerular Filtration Rate 116.6 mL/min (90-130); Glucose 101 mg/dL (65-115); Lipase 28 U/L (13-60); Osmolality Calculated 282 mOsm/kg (285-295); Sodium 137 mmol/L (136-145); Total Bilirubin 0.5 mg/dL (0.15-1.2); Total Protein 6.9 g/dL (6.6-8.7)
[2021-07-18] MEDS: iohexol 300 mg/mL 100 mL Btl IV (03:31)
[2021-07-18 04:48] VITALS: BP 115/87; PULSE 76; RESP 16; O2SAT 97
--- NOTE | 2021-07-20 11:32 | DCPLANNER ---
application development project manager had message to schedule a follow up appointment for patient with general surgery. application development project manager emailed patients information to Génesis at [facility] General Surgery. Patients information will be printed and reviewed. Clinic will call patient with appointment information.
--- NOTE | 2021-07-21 16:08 | DCPLANNER ---
Patient has a follow up appointment scheduled for Sunday, July 25, 2021 at 2:[address] Louise at [facility] general surgery. Clinic will call patient with appointment information.
--- NOTE | 2021-07-28 13:54 | DCPLANNER ---
Patient had a follow up appointment scheduled with general surgery - patient did attend appointment.
== END 2021-07-18 04:50 | disposition home or self-care (01) ==
PROVIDERS: Emergency Provider Emergency Medicine; PCP Family Medicine
DX: K80.20 Calculus of gallbladder without cholecystitis without obstruction (principal); N30.00 Acute cystitis without hematuria; Z79.82 Long term (current) use of aspirin; F17.210 Nicotine dependence, cigarettes, uncomplicated
CPT/HCPCS: 74177; 80053; 81001; 81025; 83690; 85025; 96361; 96374; 96375; 99283; J2270; J2405; J7030; Q9967

== ENCOUNTER 2021-07-25 14:52 | Outpatient (CLI) | payer BC, SELFPAY ==
[2021-07-25 15:46] LABS: Alanine Aminotransferase 59 U/L (0-33); Albumin Level 4.4 g/dL (3.5-5.2); Alkaline Phosphatase 104 IU/L (35-105); Aspartate Amino Transferase 28 U/L (0-32); Blood Urea Nitrogen 8 mg/dL (6-20); Calcium 8.9 mg/dL (8.5-10.5); Carbon Dioxide 23 mmol/L (22-29); Chloride 101 mmol/L (98-107); Globulin 2.8 g/dL (1.3-4.6); Glomerular Filtration Rate 97.6 mL/min (90-130); Glucose 67 mg/dL (65-115); Lipase 40 U/L (13-60); Osmolality Calculated 277 mOsm/kg (285-295); Sodium 135 mmol/L (136-145); Total Protein 7.2 g/dL (6.6-8.7)
== END 2021-07-25 14:53 | disposition home or self-care (01) ==
LOC: LAB 14:55
PROVIDERS: PCP Family Medicine; Visit Provider Surgery
DX: K80.20 Calculus of gallbladder without cholecystitis without obstruction (principal)
CPT/HCPCS: 80053; 83690

== ENCOUNTER → 2021-07-27 15:47 | Outpatient (BNVA) | payer BC, SELFPAY | PROVIDERS: PCP Family Medicine; Visit Provider Surgery | DX: Z20.822 Contact with and (suspected) exposure to COVID-19 (principal) | CPT/HCPCS: 87635 ==

== ENCOUNTER 2021-08-02 06:56 | Day surgery (SDC) | payer BC, SELFPAY ==
[2021-08-01 12:03] VITALS: BMI 28.8
[2021-08-02] VITALS (9 sets, daily range): BP systolic 118–156; BP diastolic 74–119; PULSE 57–83; RESP 12–22; TEMP 36.3–36.8; O2SAT 96–100
[2021-08-02 07:31] LABS: OR HCG Qualitative Urine Negative (Negative)
--- NOTE | 2021-08-02 07:46 | W.PM.OPSUD ---
Surgery/Procedure H&P Update DATE OF PROCEDURE: August 02, 2021 DATE H&P PERFORMED: 07/25/21 H&P UPDATE INFORMATION: I have reviewed H&P completed within last 30 days, I have examined patient prior to procedure and No changes to prior documentation PREOP DIAGNOSIS: Cholelithiasis PLANNED PROCEDURE: Operation Date: 08/02/21 09:10 Proposed Procedures p Laparoscopic Cholecystectomy 61115 K80.20(Not Applicable) - Justin Louise MD
[2021-08-02] MEDS: sodium chloride 0.9% 1,000 ML 30 ML IV (08:07)
--- NOTE | 2021-08-02 08:33 | ANES.PREANE2 ---
Pre-Anesthetic Assessment Pre-Anesthetic Assessment: Height/Weight: Height 1.75 m Weight 88.451 kg Temp Pulse Resp BP Pulse Ox 98.2 F 83 16 118/79 99 08/02/21 07:28 08/02/21 07:28 08/02/21 07:28 08/02/21 07:28 08/02/21 07:28 Preop Diagnosis: Cholelithiasis Proposed Procedure: Operation Date: 08/02/21 09:10 Proposed Procedures p Laparoscopic Cholecystectomy 01625 K80.20(Not Applicable) - Justin Louise MD Was Beta Long taken within 24 hours: N/A Was Clonidine taken within 24 hours: N/A Last intake: Intake Last Liquid Date 08/01/21 Last Liquid Time 22:20 Last Solid Date 08/01/21 Last Solid Time 19:30 Social: Social History: Tobacco and No alcohol Exam: Pre-Anes Outpt Exam: alert, oriented x 3 and regular rate & rhythm Airway: Submandibular: WNL Cervical ROM: WNL MP: 2 Dentition: Chipped Pulmonary: Pulmonary: COPD Anesthetic Plan: ASA status: 2 Anesthesia: General Other: PONV Risk of > 500 ml blood loss (7ml/kg in children): No Meds/Allergies Current Medications: Current Medications Generic Name Dose Route Start Last Admin Trade Name Freq PRN Reason Stop Dose Admin Sodium Chloride 1,000 mls @ 30 ml s/hr 08/02/21 07:30 08/02/21 08:07 Sodium Chloride 0.9% IV 08/03/21 07:29 30 mls/hr .Q24H HILARIO Administration PFSH Anesthesia PFSH: Medical History (Updated 08/02/21 @ 07:52 by Justin Louise MD) Depression Psoriasis Sciatica Surgical History (Updated 08/02/21 @ 07:52 by Justin Louise MD) Status post laparoscopic cholecystectomy (08/02/21) Family History Other Cancer Diabetes Hypertension Multiple sclerosis Stroke Social History Smoking and tobacco status: current every day smoker cigarettes Packs smoked per day: 0.5 Years cigarettes smoked: 10 Female Reproductive History: Date of last menstrual period: 11/17/19 Data Anesthesia Other Labs: Laboratory Results - last 48 hr 08/02/21 07:28 Urine HCG, Qual Negative Cardiac Studies: No Data to Display
[2021-08-02] MEDS: ondansetron 2 mg/ML SDV 2 mL 4 MG IVP ×2 (08:34→09:50)
[2021-08-02] MEDS: scopolamine 1.5 Patch 1 PATCH TRANSDERMA (08:34)
[2021-08-02] MEDS: diphenhydrAMINE 50 mg/mL SDV 1mL 12.5 MG IVP (08:35)
--- NOTE | 2021-08-02 09:37 | PM.OP ---
Operative Report Date of procedure: August 02, 2021 Pre-op Diagnosis: Cholelithiasis Post-op diagnosis: same Procedure Done: Laparoscopic cholecystectomy Specimens removed/disposition: Gallbladder Surgeon: Justin Louise Anesthesia: General Condition: stable Disposition: PACU Procedure: The patient was taken to the operating room and was intubated under general anesthesia. After the antibiotic had been administered, the abdomen was prepped and draped in a sterile manner. Using a #15 blade, a 1 centimeter infraumbilical curvilinear incision was made and using an open Robert technique the peritoneal cavity was entered. A 10 millimeter port was placed and 15 millimeters of pneumoperitoneum was created. A 10 millimeter, 30 degrees scope was then introduced. Three 5 millimeter ports were placed in the epigastric, midclavicular and the anterior axillary line two fingerbreadths below the costal margin on the right side under the direct visualization. Ratcheted forceps were introduced into the lateral most port and was used to retract the fundus of the gallbladder cephalad and using forceps the infundibulum of the gallbladder was retracted laterally. Using L-hook cautery the peritoneum overlying the Calot's triangle was opened medially and laterally until the cystic duct and the cystic artery were skeletonized. Dissection was carried along the body of the gallbladder and after ensuring critical view of safety, 4 clips applied on the cystic duct and 3 clips applied on the cystic artery and cut leaving, 3 clips on the remaining portion of the duct and 2 clips on the remaining portion of the artery. The rest of the gallbladder was dissected off the liver using L-hook cautery. There was no bleeding or bile leaking noted from the gallbladder fossa and the clips appeared to be in place. An EndoCatch bag was introduced to remove the gallbladder. All the ports were removed under direct visualization and there was no bleeding noted from the port sites. The fascia of the umbilicus was closed using [id number] 0 Vicryl sutures and the subcutaneous tissue was approximated using 3-0 Vicryl sutures. The skin at all four ports were closed using 4-0 Monocryl and Dermabond. A total of 10 millimeters of 0.5% Marcaine was infiltrated around the port sites. The patient was stable throughout the procedure.
[2021-08-02] MEDS: fentaNYL 50 mcg/mL INJ 2mL IVP ×2 (09:50→09:55)
[2021-08-02] MEDS: morphine 4 mg/mL SDV 1 mL IVP (10:54)
--- NOTE | 2021-08-02 14:01 | ANE.PACU2 ---
Inpatient post-anesthesia follow up: Airway intact: Yes Vital signs: Temperature 97.6 F Pulse Rate 78 Respiratory Rate 16 Blood Pressure 118/74 Pulse Oximetry 99 Oxygen Delivery Me thod Room Air Oxygen Flow Rate 8 Fraction of Inspir ed Oxygen Hydration adequate: Yes Nausea and vomiting: No Pain level: 2 Mental status: Baseline
== END 2021-08-02 12:20 | disposition home or self-care (01) ==
PROVIDERS: Anesthesiology; PCP Family Medicine; Visit Provider Surgery
PROC: 0FT44ZZ Resection of Gallbladder, Percutaneous Endoscopic Approach (ICD-10-PCS; CPT 47562; principal; 2021-08-02 09:00)
DX: K80.10 Calculus of gallbladder with chronic cholecystitis without obstruction (principal); J44.9 Chronic obstructive pulmonary disease, unspecified; F32.9 Major depressive disorder, single episode, unspecified; F17.210 Nicotine dependence, cigarettes, uncomplicated; Z79.82 Long term (current) use of aspirin; Z82.49 Family history of ischemic heart disease and other diseases of the circulatory system; Z83.3 Family history of diabetes mellitus; Z82.3 Family history of stroke
CPT/HCPCS: 47562; 84703; 88304; 96374; 96375; J0690; J1100; J1200; J2250; J2270; J2405; J2704; J2710; J3010; J3490; J7030

== ENCOUNTER → 2022-06-15 08:04 | Outpatient (BNVA) | payer BC, SELFPAY | PROVIDERS: PCP Family Medicine; Visit Provider Family Medicine | DX: Z01.419 Encounter for gynecological examination (general) (routine) without abnormal findings (principal); Z13.1 Encounter for screening for diabetes mellitus; Z13.220 Encounter for screening for lipoid disorders | CPT/HCPCS: 80061; 82947; 87624 ==

== ENCOUNTER → 2023-06-14 11:55 | Outpatient (BNVA) | payer BC, SELFPAY | PROVIDERS: PCP Family Medicine; Visit Provider Family Medicine | DX: Z13.1 Encounter for screening for diabetes mellitus (principal); Z13.220 Encounter for screening for lipoid disorders | CPT/HCPCS: 80053; 80061; 85025 ==

== ENCOUNTER → 2023-07-10 08:06 | Outpatient (BNVA) | payer BC, SELFPAY | PROVIDERS: PCP Family Medicine; Visit Provider Family Medicine | DX: R74.01 Elevation of levels of liver transaminase levels (principal); Z01.419 Encounter for gynecological examination (general) (routine) without abnormal findings; Z13.1 Encounter for screening for diabetes mellitus; Z13.220 Encounter for screening for lipoid disorders | CPT/HCPCS: 80074; 82977 ==

== ENCOUNTER → 2023-07-25 08:07 | Outpatient (BNVA) | payer BC, SELFPAY | PROVIDERS: PCP Family Medicine; Visit Provider Family Medicine | DX: R74.01 Elevation of levels of liver transaminase levels (principal); L40.0 Psoriasis vulgaris; L40.1 Generalized pustular psoriasis; Z13.220 Encounter for screening for lipoid disorders | CPT/HCPCS: 82103; 82390; 83516; 86038; 86480 ==

== ENCOUNTER 2023-08-02 06:10 | Outpatient (CLI) | payer BC, SELFPAY ==
--- NOTE | 2023-08-02 06:15 | US_ITS ---
WS: [id number] RIGHT UPPER QUADRANT ULTRASOUND HISTORY: Persistent elevation of transaminases COMPARISON: None available. Liver: 17.8 cm in length. Mildly prominent liver. No mass or bile duct dilatation. Portal Vein: Normal hepatopetal flow with monophasic waveform. Gallbladder: Status post cholecystectomy. CBD: 0.4 cm Pancreas: Normal size and echogenicity. Right kidney: 11.2 cm in length. Normal size and echogenicity. No hydronephrosis or mass. Aorta and IVC: Unremarkable abdominal aorta and IVC. No ascites. IMPRESSION: 1. Prior cholecystectomy. 2. Otherwise negative RIGHT upper quadrant ultrasound.
== END 2023-08-02 06:11 | disposition home or self-care (01) ==
PROVIDERS: PCP Family Medicine; Visit Provider Family Medicine
DX: R74.01 Elevation of levels of liver transaminase levels (principal)
CPT/HCPCS: 76705

== ENCOUNTER → 2024-07-02 08:58 | Outpatient (BNVA) | payer SELFPAY | PROVIDERS: PCP Family Medicine; Visit Provider Family Medicine | DX: Z00.00 Encounter for general adult medical examination without abnormal findings (principal); Z13.220 Encounter for screening for lipoid disorders; Z51.81 Encounter for therapeutic drug level monitoring; R53.81 Other malaise; R53.83 Other fatigue | CPT/HCPCS: 80053; 80061; 84439; 84443; 85025 ==

== ENCOUNTER 2024-10-23 07:46 | Outpatient (CLI) | payer BC, SELFPAY ==
[2024-10-27 14:05] LABS: Quantiferon Nil 0.02 IU/mL; Quantiferon TB Gold NEGATIVE (NEGATIVE)
== END 2024-10-23 07:47 | disposition home or self-care (01) ==
LOC: LAB 07:50
PROVIDERS: PCP Family Medicine; Visit Provider Nurse Practitioner Family
DX: L44.0 Pityriasis rubra pilaris (principal)
CPT/HCPCS: 36415; 86480

== ENCOUNTER 2025-05-14 10:02 | Emergency (ER) | payer BC, SELFPAY ==
[2025-05-14 10:13] VITALS: BP 106/72; PULSE 68; RESP 17; TEMP 36.6; O2SAT 100; BMI 31.0
--- NOTE | 2025-05-14 11:22 | CTR_ITS ---
PROCEDURE INFORMATION: Exam: CT Lumbar Spine Without Contrast Exam date and time: 05/14/2025 11:49 AM Age: 34 years old Clinical indication: Pain; Sciatica; Left; Additional info: Left foot numbness and back pain TECHNIQUE: Imaging protocol: Computed tomography of the lumbar spine without contrast. Radiation optimization: All CT scans at this facility use at least one of these dose optimization techniques: automated exposure control; mA and/or kV adjustment per patient size (includes targeted exams where dose is matched to clinical indication); or iterative reconstruction. COMPARISON: CT abdomen pelvis w con* [id number] 07/18/2021 3:27 AM RADIATION DOSE METRICS: Total DLP (mGy-cm): 845.3 FINDINGS: Bones/joints: No acute fracture. Normal alignment. No significant disc bulge or herniation. No severe spinal canal stenosis. No significant neural foraminal narrowing. Soft tissues: Unremarkable. CT/CT lumbar spine wo con* [id number] IMPRESSION: No acute lumbar spine fracture.
[2025-05-14] MEDS: orphenadrine 30 mg/mL Inj 2 mL 60 MG IM (11:28)
--- NOTE | 2025-05-14 11:28 | W.ED.BACK ---
HPI - Back Pain/Injury General: Chief Complaint: Back Pain/Injury Stated Complaint: back pain passed out 2x longer 30 seconds Time Seen by Provider: 05/14/25 11:08 History of Present Illness: This patient is a 34 year old - she reports a history of sciatica on her left side. Today she bent to open a child gate and felt a pop in her back. She then fell onto her knees and passed out. Her got her up into a chair and she passed out again. She has passed out before a few times. She feels okay now other than the back pain. She was sweaty and nauseous when she had the syncopal episodes. Her prior episodes of sciatica have been in the same area of her back and leg. She is not on any medication for her sciatica. She does have a history of psoriasis and is on Stelara. Related Data Home Medications ?Medication ?Instructions ?Recorded ?Confirmed ustekinumab 90 mg/mL subcutaneous SUBCUT 07/02/24 07/02/24 syringe (Stelara) Previous Rx's ?Medication ?Instructions ?Recorded clobetasol 0.05 % topical cream 1 applic topical BID #60 grams 06/13/23 calcipotriene 0.005 % topical cream 1 applic topical BID #120 grams 07/29/23 clindamycin phosphate 1 % lotion 1 applic topical BID #60 mL 07/29/23 fluoxetine 10 mg tablet 10 mg PO DAILY #30 tabs 09/28/24 methocarbamol 750 mg tablet 1,500 mg (2 x 750 mg) PO Q6H PRN 05/14/25 muscle spasm 48 hours #16 tabs Allergies Allergy/AdvReac Type Severity Reaction Status Date / Time No Known Allergies Allergy Verified 07/02/24 08:36 PFS ED PFSH: Medical History Depression Psoriasis Sciatica Surgical History Status post laparoscopic cholecystectomy (08/02/21) Family History Mother No problems noted. Other Cancer Diabetes Hypertension Multiple sclerosis Stroke Social History (Updated 07/02/24 @ 08:38 by Jake Kelley MD) Smoking and tobacco/nicotine status: current every day tobacco/nicotine user cigarettes Packs smoked per day: 0.5 Years cigarettes smoked: 10 Alcohol intake: current Alcohol intake frequency: holidays/special occasions only Substance/Drug Use: current Substance/Drug use frequency: daily Other substance/drug use details: THC to help with anxiety Current occupation: [employer] Physical Exam Const: COMMON NORMALS: no acute distress, patient oriented x3, no limitations and alert GENERAL APPEARANCE: cooperative and comfortable HENMT: HEAD & SCALP: normal to inspection FACE & SINUS: normal facial exam Eye: GENERAL EYE: appearance normal, both eyes and all related structures Neck/C-Spine: COMMON NORMALS: supple, no meningeal signs and no JVD Chest: COMMONS NORMALS: normal inspection of the chest Resp: COMMON NORMALS: normal respiratory effort, No use of accessory muscles and clear to auscultation bilaterally AUSCULTATION: clear to auscultation bilaterally Cardio: COMMON NORMALS: no JVD, regular rate, regular rhythm and No murmurs present (Cardio) RATE: regular rate RHYTHM: regular rhythm GI: COMMON NORMALS: Normal to inspection, nondistended, normoactive bowel sounds present, Soft to palpation and non-tender INSPECTION: Yes normal to inspection AUSCULTATION: Yes normoactive bowel sounds PALPATION: Yes Soft to palpation Back/Pelvis: COMMON NORMALS: thoracic and lumbar spine normal to inspection OTHER: tender in the area of the left SI joint and paraspinal muscles Extremity: COMMON NORMALS: normal to inspection Neuro: COMMON NORMALS: patient oriented x3, moves all extremities and no focal motor deficits SENSORIUM/ORIENTATION: Yes alert MENINGEAL SIGNS: Yes no meningeal signs SENSORY EXAM: Yes extremities (left foot with decreased sensation on the lateral aspect and lateral toes) MOTOR EXAM: 5/5 motor strength present throughout DEEP TENDON REFLEXES: Right patellar reflex intensity grade: 2+, Left patellar reflex intensity grade: 2+, Right ankle reflex intensity grade: 2+ and Left ankle reflex intensity grade: 2+ Psych: COMMON NORMALS: mental status grossly normal, cooperative and normal affect Skin: COMMON NORMALS: no rashes or lesions noted and turgor normal GENERAL SKIN EXAM: no rashes or lesions noted and turgor normal Course Vital Signs: Vital signs: Vital Signs Temperature 97.8 F 05/14/25 10:13 Pulse Rate 77 05/14/25 13:42 Respiratory Rate 17 05/14/25 10:13 Blood Pressure 103/66 05/14/25 13:42 Pulse Oximetry 97 05/14/25 13:42 Oxygen Delivery Me thod Room Air 05/14/25 13:00 MDM - Back Pain/Injury Medical Decision Making Back pain in the area of her chronic sciatica - no bladder or bowel incontinence but she does have numbness in the left lateral foot and toes. CT done - she did not want pain medicine other than anti-inflammatory. Ketorolac, steroid and muscle relaxer given in the ED. Labs Radiology Impressions Lumbar Spine CT 05/14/25 11:22 IMPRESSION: No acute lumbar spine fracture. All radiology interpretation(s) finalized by discharge Discharge Plan Discharge Patient Disposition: Home Clinical Impression: Strain of lumbar region, Lumbar radiculopathy Condition: Stable Prescriptions: New methocarbamol 750 mg tablet 1,500 mg PO Q6H PRN (Reason: muscle spasm) 2 Days Qty: 16 0RF No Action clindamycin phosphate 1 % lotion 1 applic topical BID Qty: 60 6RF calcipotriene 0.005 % cream 1 applic topical BID Qty: 120 6RF Rx Instructions: rub in gently and completely clobetasol 0.05 % cream 1 applic topical BID Qty: 60 3RF Stelara 90 mg/mL syringe SUBCUT fluoxetine 10 mg tablet 10 mg PO DAILY Qty: 30 6RF Discharge Orders: Discharge ED (Routine); Ordered 05/14/25 Ordered By: Olena So Referrals: Jake Kelley MD [Primary Care Provider, Family Practice] Patient Instructions: Opioid Safety, Pain Management, Patient Portal & Sohan Instructions Print Language: Nigerien Coding Level of Care Code ED [employer] Technician for Julián Pagan
[2025-05-14 11:38] VITALS: BP 100/69; PULSE 67; O2SAT 96
[2025-05-14 13:00] VITALS: BP 103/66; PULSE 66; O2SAT 97
[2025-05-14 13:42] VITALS: BP 103/66; PULSE 77; O2SAT 97
== END 2025-05-14 13:43 | disposition home or self-care (01) ==
PROVIDERS: Emergency Provider Emergency Medicine; PCP Family Medicine
DX: S39.012A Strain of muscle, fascia and tendon of lower back, initial encounter (principal); M54.16 Radiculopathy, lumbar region; F17.210 Nicotine dependence, cigarettes, uncomplicated; X58.XXXA Exposure to other specified factors, initial encounter
CPT/HCPCS: 36415; 72131; 96374; 96375; 99285; J1100; J1885; J2360

== ENCOUNTER → 2025-07-30 08:02 | Outpatient (BNVA) | payer BC, SELFPAY | PROVIDERS: PCP Family Medicine; Visit Provider Family Medicine | DX: Z51.81 Encounter for therapeutic drug level monitoring (principal); Z13.6 Encounter for screening for cardiovascular disorders; I44.0 Atrioventricular block, first degree; R53.81 Other malaise; R53.83 Other fatigue | CPT/HCPCS: 80053; 80061; 83735; 84443; 85025 ==

== ENCOUNTER 2025-08-03 16:17 | Outpatient (CLI) | payer BC, SELFPAY | END 2025-08-03 16:18 | disposition home or self-care (01) | LOC: LAB 16:18 | PROVIDERS: PCP Family Medicine; Visit Provider Nurse Practitioner Family | DX: Z01.89 Encounter for other specified special examinations (principal) | CPT/HCPCS: 36415; 86480 ==

== ENCOUNTER 2025-08-16 15:39 | Outpatient (CLI) | payer BC, SELFPAY ==
--- NOTE | 2025-08-16 16:00 | MR_ITS ---
WS: [id number] MRI BRAIN WITH AND WITHOUT CONTRAST HISTORY: Syncope, vertigo, double vision COMPARISON: Noncontrast CT head 11/25/2019 TECHNIQUE: Multiplanar imaging performed through the brain with MultiHance 20 ml's IV. No acute infarcts are seen. Adams-white matter differentiation is well preserved. No susceptibility artifacts or prior lacunar infarcts. Ventricles and extra-axial spaces are normal. Clivus and pituitary gland are normal. Visualized posterior fossa and brainstem are also normal. Postcontrast images are negative for masses or vascular malformations. Dural venous sinuses are normal. Paranasal sinuses: Well aerated with no significant disease. 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 Mastoid air cells: Normal. Calvarium and scalp: Normal. MR/MR head wo/w con [id number] IMPRESSION: 1. Normal MRI brain with contrast. 2. No acute or remote infarct. No hemorrhage. 3. No small vessel disease. 4. Normal appearance of the optic chiasm and infundibulum.
[2025-08-16] MEDS: gadobenate dimeglumine 20 mL vial IV (16:29)
== END 2025-08-16 15:40 | disposition home or self-care (01) ==
LOC: RAD 15:41
PROVIDERS: PCP Family Medicine; Visit Provider Family Medicine
DX: R55 Syncope and collapse (principal); H53.2 Diplopia; G93.89 Other specified disorders of brain; J34.1 Cyst and mucocele of nose and nasal sinus
CPT/HCPCS: 70553

== ENCOUNTER 2025-09-30 14:48 | Outpatient (CLI) | payer BC, SELFPAY ==
--- NOTE | 2025-09-30 15:00 | USCV_ITS ---
Yina Soriano Age: 34 Gender: F : 1990 Exam Date: 09/30/2025 15:26 Ordering Phys: Jake Kelley MD Technologist: Ex[place] [facility] [place]: syncope BP: 120 / 80 HR: 69 Rhythm: Sinus Technical Quality: Adequate MEASUREMENTS (Male / Female) Normal Values 2D ECHO LV Diastolic Diameter PLAX 3.8 cm 4.2 - 5.9 / 3.9 - 5.3 cm IVS Diastolic Thickness 1.5 cm 0.6 - 1.0 / 0.6 - 0.9 cm IVS Systolic Thickness 1.8 cm LVPW Diastolic Thickness 1.2 cm 0.6 - 1.0 / 0.6 - 0.9 cm LVPW Systolic Thickness 1.4 cm LVOT Diameter 1.9 cm LV Ejection Fraction 2D Teich 65.0 % LV Ejection Fraction MOD 4C 63.8 % LV Ejection Fraction MOD 2C 62.8 % LV Ejection Fraction 2C AL 61.7 % LA Diameter 2.7 cm RA Systolic Volume 4C AL 23.7 ml RA Systolic Volume 4C MOD 23.1 ml LA Sys Volume AL 44.8 cm cubed LA Sys Volume Index AL 21.2 cm cubed/m squared Aorta at Sinotubular Diameter 2.5 cm IVC Diameter 1.4 cm M-MODE LA Ao Ratio MM 1.0 AV Cusp Separation MM 2.4 cm DOPPLER AV Peak Velocity 125.0 cm/s LVOT Peak Velocity 115.0 cm/s AV Area Cont Eq vti 2.7 cm squared AV Area Cont Eq pk 2.6 cm squared MV Area PHT 3.3 cm squared Mitral E to A Ratio 1.2 TR Peak Velocity 152.0 cm/s TR Peak Gradient 9.2 mmHg TV Peak E Velocity 85.0 cm/s PV Peak Velocity 104.0 cm/s FINDINGS Left Ventricle Normal left ventricular size and systolic function, EF 60-65%. No regional wall motion abnormalities. Diastolic function is normal Right Ventricle Normal in size and function Right Atrium Normal in size Left Atrium Normal in size IA Septum Grossly normal Mitral Valve Structurally normal mitral valve. Aortic Valve Structurally normal aortic valve. No significant stenosis or regurgitation. Tricuspid Valve Insufficient TR jet to calculate RVSP Pulmonic Valve Not well visualized Pericardium Normal Aorta Normal in size IVC Appears to be normal CONCLUSIONS LV systolic function is normal with EF of 60-65% Diastolic function is normal No significant valvular heart disease No comparison studies are available. Alfonzo Martinez MD (Electronically Signed) Final Date: 14 October 2025 11:48 S
== END 2025-09-30 14:49 | disposition home or self-care (01) ==
LOC: RAD 14:49
PROVIDERS: PCP Family Medicine; Visit Provider Family Medicine
DX: R55 Syncope and collapse (principal)
CPT/HCPCS: 93306